=== PATIENT | male | born 1990 | race Two or more races ===

== ENCOUNTER 2020-04-24 00:36 | Emergency (ER) | payer OTHER ==
[~2020-04-24] VITALS: Ht 167.6 cm; Wt 72.6 kg
[2020-04-24] MEDS ORDERED: ATORVASTATIN CA10 MG (01:09)
[2020-04-24] MEDS ORDERED: DOLOGESIC 500-1 EACH PO (05:10)
== END 2020-04-24 05:28 | disposition home or self-care (01) ==
LOC: ER 00:36
DX: S02.2XXA Fracture of nasal bones, initial encounter for closed fracture (principal); Y08.89XA Assault by other specified means, initial encounter; Y93.89 Activity, other specified; Y92.89 Other specified places as the place of occurrence of the external cause; Y99.8 Other external cause status